=== PATIENT | female | born 1960 | race Caucasian/White ===

== ENCOUNTER 2017-08-13 17:54 | Emergency (ER) | payer OTHER ==
[~2017-08-13] VITALS: Ht 167.6 cm; Wt 77.1 kg
[2017-08-16] MEDS ORDERED: MACROBID100 M1 PO (13:19)
[2017-08-21] MEDS ORDERED: ZOFRAN4 MG PO (07:53)
[2017-08-21] MEDS ORDERED: TYLENOL WITH C1 EACH PO (07:54)
== END 2017-08-13 19:45 | disposition home or self-care (01) ==
LOC: ED 17:54
DX: S52.92XA Unspecified fracture of left forearm, initial encounter for closed fracture (principal); S52.202A Unspecified fracture of shaft of left ulna, initial encounter for closed fracture; R03.0 Elevated blood-pressure reading, without diagnosis of hypertension; Z88.2 Allergy status to sulfonamides; Z91.040 Latex allergy status; W01.0XXA Fall on same level from slipping, tripping and stumbling without subsequent striking against object, initial encounter; Y93.89 Activity, other specified; Y92.89 Other specified places as the place of occurrence of the external cause; Y99.8 Other external cause status

== ENCOUNTER → 2017-08-21 | Day surgery (SDC) | payer OTHER ==
[2017-08-14 16:58] LABS: BILIRUBIN NEGATIVE (NEGATIVE); BLOOD TRACE-INTACT (NEGATIVE); CLARITY SL CLOUDY (CLEAR); COLOR YELLOW (YELLOW); GLUCOSE NEGATIVE (NEGATIVE); KETONE NEGATIVE (NEGATIVE); LEUKO ESTERASE 1+ (NEGATIVE); NITRITE NEGATIVE (NEGATIVE); PH 5.5 (5.0-9.0); SPECIFIC GRAVITY <= 1.005 (1.005-1.030); UROBILINOGEN 0.2 E.U./dl (0.2-1.0)
[2017-08-14 16:59] LABS: BASO % 0.3 % (0.0-1.0); EOS % 0.3 % (1.0-4.0); HEMATOCRIT 42.7 % (37.0-47.0); LYMPH # 1.1 10*3/uL (1.3-4.4); LYMPH % 11.3 % (27.0-41.0); MEAN CELL VOLUME 89.7 fl (81.0-99.0); MEAN CORPUSCULAR HGB 29.4 pg (27.0-31.0); MEAN CORPUSCULAR HGB CONC 32.8 g/dl (33.0-37.0); MEAN PLATELET VOLUME 9.5 fl (9.6-12.3); MONO # 0.6 10*3/uL (0.1-1.0); MONO % 6.4 % (3.0-9.0); NEUT # 7.7 10*3/uL (2.3-7.9); NEUT % 81.3 % (47.0-73.0); PLATELET COUNT AUTOMATED 227 10*3/uL (130-400); RED BLOOD COUNT 4.76 10*6/uL (4.10-5.10); RED CELL DISTRI WIDTH 12.2 % (0-14.5); WHITE BLOOD COUNT 9.5 10*3/uL (4.8-10.8)
[2017-08-14 17:08] LABS: BACTERIA 2+; EPITHELIAL CELLS 18-20
[2017-08-14 17:11] LABS: BUN 8 mg/dl (7-24); CHLORIDE 106 mmol/L (98-107); CREATININE 0.71 mg/dL (0.55-1.02); POTASSIUM 3.9 mmol/L (3.5-5.1); SODIUM 140 mmol/L (136-145)
[2017-08-16 12:01] LABS: BILIRUBIN NEGATIVE (NEGATIVE); BLOOD 2+ (NEGATIVE); CLARITY SL CLOUDY (CLEAR); COLOR YELLOW (YELLOW); GLUCOSE NEGATIVE (NEGATIVE); KETONE NEGATIVE (NEGATIVE); LEUKO ESTERASE 1+ (NEGATIVE); NITRITE NEGATIVE (NEGATIVE); SPECIFIC GRAVITY 1.015 (1.005-1.030); UROBILINOGEN 0.2 E.U./dl (0.2-1.0)
[2017-08-16 12:08] LABS: BACTERIA 2+; EPITHELIAL CELLS 21-30
[2017-08-16 12:15] VITALS: BP 166/69
[2017-08-16 12:32] LABS: BILIRUBIN NEGATIVE (NEGATIVE); BLOOD 1+ (NEGATIVE); CLARITY SL CLOUDY (CLEAR); COLOR YELLOW (YELLOW); GLUCOSE NEGATIVE (NEGATIVE); KETONE NEGATIVE (NEGATIVE); LEUKO ESTERASE NEGATIVE (NEGATIVE); NITRITE NEGATIVE (NEGATIVE); SPECIFIC GRAVITY 1.015 (1.005-1.030); UROBILINOGEN 0.2 E.U./dl (0.2-1.0)
[2017-08-16 12:41] LABS: BACTERIA 3+
[~2017-08-21] VITALS: Ht 167.6 cm; Wt 79.4 kg
[~2017-08-21] MED LIST: MACROBID100 M1 PO; TYLENOL WITH C1 EACH PO; ZOFRAN4 MG PO
[2017-08-21 06:46] LABS: BILIRUBIN NEGATIVE (NEGATIVE); BLOOD TRACE-LYSED (NEGATIVE); CLARITY CLOUDY (CLEAR); COLOR YELLOW (YELLOW); GLUCOSE NEGATIVE (NEGATIVE); KETONE NEGATIVE (NEGATIVE); LEUKO ESTERASE NEGATIVE (NEGATIVE); NITRITE NEGATIVE (NEGATIVE); PH 5.5 (5.0-9.0); SPECIFIC GRAVITY 1.025 (1.005-1.030); UROBILINOGEN 0.2 E.U./dl (0.2-1.0)
[2017-08-21 06:56] VITALS: BP 154/95
[2017-08-21 07:13] LABS: BACTERIA TRACE; MUCOUS 2+; WBC 0-2 wbc/hpf (0-5)
[2017-08-21 10:23] VITALS: BP 129/70
[2017-08-21 10:38] VITALS: BP 148/69
[2017-08-21 10:53] VITALS: BP 153/71
[2017-08-21 11:08] VITALS: BP 142/74
[2017-08-21 11:23] VITALS: BP 142/74
== END | disposition home or self-care (01) ==
LOC: SDC 08-14 15:00
PROVIDERS: Orthopaedic Surgery
DX: S52.572A Other intraarticular fracture of lower end of left radius, initial encounter for closed fracture (principal); S52.602A Unspecified fracture of lower end of left ulna, initial encounter for closed fracture; I10 Essential (primary) hypertension; F17.210 Nicotine dependence, cigarettes, uncomplicated; E66.9 Obesity, unspecified; Z68.28 Body mass index [BMI] 28.0-28.9, adult; F41.9 Anxiety disorder, unspecified; Z79.82 Long term (current) use of aspirin; Z79.891 Long term (current) use of opiate analgesic; Z88.2 Allergy status to sulfonamides; Z82.49 Family history of ischemic heart disease and other diseases of the circulatory system; W19.XXXA Unspecified fall, initial encounter; Y93.89 Activity, other specified; Y92.89 Other specified places as the place of occurrence of the external cause; Y99.8 Other external cause status

== ENCOUNTER → 2017-09-19 | Outpatient (CLI) | payer OTHER | END | disposition home or self-care (01) | LOC: ORTHO 00:33 | DX: S52.572D Other intraarticular fracture of lower end of left radius, subsequent encounter for closed fracture with routine healing (principal); X58.XXXD Exposure to other specified factors, subsequent encounter ==

== ENCOUNTER → 2017-11-05 | Outpatient (CLI) | payer OTHER | END | disposition home or self-care (01) | LOC: ORTHO 03:50 | DX: Z47.89 Encounter for other orthopedic aftercare (principal); S52.502D Unspecified fracture of the lower end of left radius, subsequent encounter for closed fracture with routine healing; X58.XXXD Exposure to other specified factors, subsequent encounter ==

== ENCOUNTER → 2017-12-12 | Outpatient (CLI) | payer OTHER | END | disposition home or self-care (01) | LOC: ORTHO 03:59 | DX: S52.572D Other intraarticular fracture of lower end of left radius, subsequent encounter for closed fracture with routine healing (principal); S52.612D Displaced fracture of left ulna styloid process, subsequent encounter for closed fracture with routine healing; X58.XXXD Exposure to other specified factors, subsequent encounter ==